=== PATIENT | female | born 1985 | race Caucasian/White ===

== ENCOUNTER 2017-09-30 07:21 | Inpatient (IN) | payer OTHER ==
[2017-09-30] MEDS ORDERED: LIDOCAINE 1% (MPF) 30 ML INJ INJ (08:00)
[2017-09-30] MEDS: AMPICILLIN 2 GM/NS (PMX) 100 ML IV (08:00)
[2017-09-30] MEDS ORDERED: MISOPROSTOL 200 MCG TAB PR ×2 (08:00→20:30)
[2017-09-30] MEDS ORDERED: OXYTOCIN 30 UNITS/LR 500 ML IV ×3 (08:00→20:30)
[2017-09-30] MEDS ORDERED: CARBOPROST 250 MCG INJ IM ×2 (08:00→20:30)
[2017-09-30] MEDS ORDERED: METHYLERGONOVINE 0.2 MG INJ IM ×2 (08:00→20:30)
[2017-09-30] MEDS ORDERED: BUTORPHANOL 2 MG INJ (08:05)
[2017-09-30] MEDS ORDERED: LIDOCAINE 1% (MPF) 30 ML INJ (08:05)
[2017-09-30] MEDS: LACTATED RINGER'S 1,000 ML IV ×3 (08:15→12:49)
[2017-09-30 08:22] LABS: ADD MAN DIFF? NO
[2017-09-30 08:35] LABS: BASOPHILS % 0.4 % (0.0-2.0); EOSINOPHILS # 0.1 10^3/ul (0.0-0.5); EOSINOPHILS % 0.8 % (0.0-7.0); HEMATOCRIT 34.2 % (37.0-47.0); HEMOGLOBIN 11.9 g/dl (12.0-16.0); LYMPHOCYTES % 18.2 % (15.0-51.0); MEAN CORPUSCULAR HEMOGLOBIN 31.4 pg (29.0-33.0); MEAN CORPUSCULAR HGB CONC 34.8 g/dl (32.0-37.0); MEAN CORPUSCULAR VOLUME 90.2 fl (82.0-101.0); MEAN PLATELET VOLUME 10.9 fl (7.4-10.4); MONOCYTE # 0.7 10^3/ul (0.3-0.9); MONOCYTES % 6.4 % (0.0-11.0); NEUTROPHIL # 8.3 10^3/ul (1.6-7.5); NEUTROPHILS % 73.8 % (39.0-77.0); PLATELET COUNT 203 10^3/UL (140-415); RED BLOOD COUNT 3.79 10^6/ul (4.20-5.40); RED CELL DISTRIBUTION WIDTH 13.2 % (11.5-14.5)
[2017-09-30 08:35] LABS: WHITE BLOOD COUNT 11.2 10^3/ul (4.8-10.8)
[2017-09-30] MEDS ORDERED: FENTAnyl 2MCG/ML-ROPIV 0.2% 100 ML (08:44)
[2017-09-30 08:58] LABS: INR 0.89; PROTIME 12.1 Sec (11.9-14.9); PT RATIO 0.9
[2017-09-30] MEDS ORDERED: ONDANSETRON 4 MG INJ IV (09:00)
[2017-09-30] MEDS ORDERED: DIPHENHYDRAMINE 50 MG INJ IV (09:00)
[2017-09-30] MEDS ORDERED: NALOXONE (0.4 MG/ML) INJ IV (09:00)
[2017-09-30] MEDS ORDERED: AMPICILLIN 1 GM/NS (PMX) 50 ML IV (12:00)
[2017-09-30] MEDS: FENTAnyl 2MCG/ML-ROPIV 0.2% 100 ML BAG EPI (17:07)
[2017-09-30] MEDS: OXYTOCIN 30 UNITS/LR 500 ML IV ×2 (19:03→20:10)
[2017-09-30] MEDS: LACTATED RINGER'S 1,000 ML IV* (20:12)
[2017-09-30] MEDS ORDERED: ZOLPIDEM 5 MG TAB PO (20:30)
[2017-09-30] MEDS ORDERED: DIBUCAINE 1% 30 GM OINT PR (20:30)
[2017-09-30] MEDS ORDERED: BENZOCAINE 20% 56 ML SPRAY TOP (20:30)
[2017-09-30] MEDS ORDERED: WITCH HAZEL/GLYCERIN PAD PR (20:30)
[2017-09-30 20:38] LABS: RAPID PLASMA REAGIN NONREACTIVE (NR)
[2017-09-30] MEDS: MAGNESIUM HYDROXIDE 30ML CUP PO (21:00)
[2017-09-30] MEDS: SENNA/DOCUSATE NA (8.6MG/50MG) TAB PO (21:00)
[2017-09-30] MEDS ORDERED: oxyCODONE 5 MG TAB PO (21:30)
[2017-10-01] MEDS: CEPHALEXIN 500 MG CAP PO ×5 (00:55→23:58)
[2017-10-01] MEDS: oxyCODONE 5 MG TAB PO ×3 (00:55→15:16)
[2017-10-01] MEDS: LACTATED RINGER'S 1,000 ML IV* (04:12)
[2017-10-01] MEDS: MAGNESIUM HYDROXIDE 30ML CUP PO ×2 (09:51→21:08)
[2017-10-01] MEDS: SENNA/DOCUSATE NA (8.6MG/50MG) TAB PO ×2 (09:51→21:08)
[2017-10-01 11:10] LABS: ADD MAN DIFF? NO
[2017-10-01 11:20] LABS: BASOPHILS % 0.2 % (0.0-2.0); EOSINOPHILS # 0.1 10^3/ul (0.0-0.5); EOSINOPHILS % 0.5 % (0.0-7.0); HEMATOCRIT 32.2 % (37.0-47.0); LYMPHOCYTES # 1.8 10^3/ul (0.8-2.9); LYMPHOCYTES % 13.4 % (15.0-51.0); MEAN CORPUSCULAR HEMOGLOBIN 30.7 pg (29.0-33.0); MEAN CORPUSCULAR HGB CONC 34.2 g/dl (32.0-37.0); MEAN CORPUSCULAR VOLUME 89.9 fl (82.0-101.0); MEAN PLATELET VOLUME 10.5 fl (7.4-10.4); MONOCYTE # 0.7 10^3/ul (0.3-0.9); MONOCYTES % 5.1 % (0.0-11.0); NEUTROPHIL # 10.7 10^3/ul (1.6-7.5); NEUTROPHILS % 80.3 % (39.0-77.0); PLATELET COUNT 205 10^3/UL (140-415); RED BLOOD COUNT 3.58 10^6/ul (4.20-5.40); RED CELL DISTRIBUTION WIDTH 13.5 % (11.5-14.5)
[2017-10-01 11:20] LABS: WHITE BLOOD COUNT 13.3 10^3/ul (4.8-10.8)
[2017-10-01] MEDS: LANOLIN 7 GM TUBE TOP (22:01)
[2017-10-02] MEDS: oxyCODONE 5 MG TAB PO (06:18)
[2017-10-02] MEDS: CEPHALEXIN 500 MG CAP PO ×2 (06:18→13:20)
[2017-10-02 08:57] LABS: ADD MAN DIFF? NO
[2017-10-02] MEDS: MEASLES,MUMPS,RUBELLA VACCINE INJ SC* (09:00)
[2017-10-02 09:02] LABS: WHITE BLOOD COUNT 12.4 10^3/ul (4.8-10.8)
[2017-10-02 09:02] LABS: BASOPHIL # 0.1 10^3/ul (0.0-0.1); BASOPHILS % 0.4 % (0.0-2.0); EOSINOPHILS # 0.1 10^3/ul (0.0-0.5); EOSINOPHILS % 0.7 % (0.0-7.0); HEMATOCRIT 35.1 % (37.0-47.0); HEMOGLOBIN 11.9 g/dl (12.0-16.0); LYMPHOCYTES # 2.1 10^3/ul (0.8-2.9); MEAN CORPUSCULAR HGB CONC 33.9 g/dl (32.0-37.0); MEAN CORPUSCULAR VOLUME 91.4 fl (82.0-101.0); MEAN PLATELET VOLUME 10.4 fl (7.4-10.4); MONOCYTE # 0.7 10^3/ul (0.3-0.9); MONOCYTES % 5.6 % (0.0-11.0); NEUTROPHIL # 9.4 10^3/ul (1.6-7.5); NEUTROPHILS % 75.8 % (39.0-77.0); PLATELET COUNT 223 10^3/UL (140-415); RED BLOOD COUNT 3.84 10^6/ul (4.20-5.40); RED CELL DISTRIBUTION WIDTH 13.4 % (11.5-14.5)
[2017-10-02] MEDS: DIPHTH/TET/ACEL PERTUSS (ADULT) 0.5 ML VIAL IM* (09:42)
[2017-10-02] MEDS: VARICELLA VACCINE LIVE/PF 1,350 UNIT/0.5 ML ML SC* (09:42)
[2017-10-02] MEDS: MAGNESIUM HYDROXIDE 30ML CUP PO (09:43)
[2017-10-02] MEDS: SENNA/DOCUSATE NA (8.6MG/50MG) TAB PO (09:43)
== END 2017-10-02 15:54 | disposition home or self-care (01) | DRG 775 ==
LOC: OBT 07:21 → L-D 07:22 → OBT 07:59 → L-D 07:35 → PP1 21:11
PROVIDERS: Obstetrics & Gynecology
PROC: 10E0XZZ Delivery of Products of Conception, External Approach (ICD-10-PCS; principal; 2017-09-30)
PROC: 3E033VJ Introduction of Other Hormone into Peripheral Vein, Percutaneous Approach (ICD-10-PCS; 2017-09-30)
DX: O69.81X0 Labor and delivery complicated by cord around neck, without compression, not applicable or unspecified (principal); Z3A.39 39 weeks gestation of pregnancy; Z37.0 Single live birth
CPT/HCPCS: 62319; 85025; 85610; 85730; 86592; 86900; 86901; 99464